=== PATIENT | male | born 1940 | race Hispanic/Latino ===

== ENCOUNTER 2020-07-21 16:05 | Emergency (ER) | payer OTHER ==
[2020-07-21 18:09] LABS: INR-International Normal Ratio 3.4; Prothrombin Time 35.1 sec (12.0-14.7)
[2020-07-21 18:10] LABS: PTT 47.8 sec (22.9-36.1)
[2020-07-21] MEDS ORDERED: Enoxaparin Sodium 80 MG/0.8 ML SYRINGE ONE (19:04)
== END 2020-07-21 23:29 ==
LOC: ERS 16:05 → EEVIPCON 16:05 → ERS 23:29
DX: I82.411 Acute embolism and thrombosis of right femoral vein (principal); I82.431 Acute embolism and thrombosis of right popliteal vein; I25.10 Atherosclerotic heart disease of native coronary artery without angina pectoris; I11.0 Hypertensive heart disease with heart failure; I50.9 Heart failure, unspecified; Z86.711 Personal history of pulmonary embolism; Z87.19 Personal history of other diseases of the digestive system
CPT/HCPCS: 36415; 85610; 85730; 96372; J1650